=== PATIENT | male | born 1985 | race Hispanic/Latino ===

== ENCOUNTER → 2016-11-26 | Outpatient (CLI) | payer BC, SELFPAY ==
--- NOTE | 2016-11-29 08:18 | RAD ---
Three-view right toes. Indication: TOE FX Comparison: None. IMPRESSION: A mildly comminuted fracture of the tuft of the fifth distal phalanx noted and is relatively nondisplaced. Fusion across the fifth DIP joint noted. Soft tissue swelling present. No radiopaque foreign body. Minimal osteoarthritis first MTP joint. Electronically signed by: Jerome Jacob MD 11/29/2016 8:17 AM CDT
== END | disposition home or self-care (01) ==
LOC: RAD 11:09
PROVIDERS: ATTEND Nurse Practitioner Family
DX: S92.503A Displaced unspecified fracture of unspecified lesser toe(s), initial encounter for closed fracture (principal); X58.XXXA Exposure to other specified factors, initial encounter